=== PATIENT | male | born 1985 | race Caucasian/White ===

== ENCOUNTER 2017-08-02 19:54 | Emergency (ER) | payer MEDICAID ==
[~2017-08-02] VITALS: Ht 170.2 cm; Wt 108.9 kg
[2017-08-02 20:02] VITALS: BP 142/88; Ht 170.2 cm; Wt 108.9 kg
== END 2017-08-02 21:25 | disposition home or self-care (01) ==
LOC: ED 19:54
DX: J02.9 Acute pharyngitis, unspecified (principal); R03.0 Elevated blood-pressure reading, without diagnosis of hypertension; F17.210 Nicotine dependence, cigarettes, uncomplicated
CPT/HCPCS: J1100

== ENCOUNTER 2019-08-28 23:52 | Emergency (ER) | payer MEDICAID ==
[~2019-08-28] VITALS: Ht 170.2 cm; Wt 98.9 kg
[2019-08-28 23:59] VITALS: Ht 170.2 cm; Wt 98.9 kg
[2019-08-29 02:31] VITALS: BP 129/80
== END 2019-08-29 02:31 | disposition home or self-care (01) ==
LOC: ED 23:52
DX: F15.10 Other stimulant abuse, uncomplicated (principal); R20.2 Paresthesia of skin; R43.8 Other disturbances of smell and taste; M79.10 Myalgia, unspecified site